=== PATIENT | male | born 1970 | race Caucasian/White ===

== ENCOUNTER 2024-09-18 13:02 | Outpatient (REF) | payer MEDICAID, SELFPAY ==
[2024-09-18 14:21] LABS: HGB 15.5 g/dL (13.5-17.5); MCH 30.8 pg (27.0-33.0); MCHC 34.4 % (32.0-36.0); MCV 89 fL (80-95); MPV 11.2 fL (8.0-11.0); Platelet Count 225 10^3/uL (130-400); RBC 5.04 10^6/uL (4.36-5.78); RDW 12.1 % (11.8-14.1); RDW-SD 39.5 fL; WBC 4.92 10^3/uL (4.4-10.8)
[2024-09-18 14:43] LABS: ALT 54 U/L (16-63); AST 20 U/L (15-37); Albumin 3.8 g/dL (3.4-5.0); Alkaline Phosphatase 54 U/L (46-116); Anion Gap 10.1 mmol/L (3-11); BUN 16 mg/dL (7-18); Bilirubin, Total 0.5 mg/dL (0.2-1.0); CO2 25.9 mmol/L (21.0-32.0); CREATININE 0.9 mg/dL (0.70-1.30); Calcium 9.1 mg/dL (8.5-10.1); Calculated LDL 159 mg/dL (<100); Chloride 105 mmol/L (98-107); Cholesterol 230 mg/dL (<200); Estimated GFR 101.49 (mL/min/1.73m2); Glucose 98 mg/dL (74-106); HDL Cholesterol 57 mg/dL (>or=40); Potassium 4.2 mmol/L (3.5-5.1); Sodium 141 mmol/L (136-145); TSH 5.19 uIU/mL (0.36-3.74); Triglyceride 72 mg/dL (<150)
[2024-09-19 09:45] LABS: PSA, Screening 1.1 ng/mL (<=3.5)
== END 2024-09-18 13:03 | disposition home or self-care (01) ==
LOC: NCHCN 13:02
PROVIDERS: PCP Physician Assistant; Visit Provider Physician Assistant
DX: Z12.5 Encounter for screening for malignant neoplasm of prostate (principal); F41.8 Other specified anxiety disorders; Z13.6 Encounter for screening for cardiovascular disorders; Z13.220 Encounter for screening for lipoid disorders
CPT/HCPCS: 80053; 80061; 84153; 85027; 84443

== ENCOUNTER 2024-09-25 12:23 | Outpatient (REF) | payer MEDICAID, SELFPAY ==
[2024-09-25 22:46] LABS: T3, Total 158 ng/dL (97-169)
== END 2024-09-25 12:24 | disposition home or self-care (01) ==
LOC: NCHCN 12:23
PROVIDERS: PCP Physician Assistant; Visit Provider Physician Assistant
DX: R94.6 Abnormal results of thyroid function studies (principal)
CPT/HCPCS: 84436; 84480